=== PATIENT | male | born 1990 | race Caucasian/White ===

== ENCOUNTER 2019-01-09 20:14 | Emergency (ER) | payer MEDICAID ==
[~2019-01-09] VITALS: Ht 175.3 cm; Wt 82.0 kg
[2019-01-09 20:49] VITALS: BP 140/77
[2019-01-09] MEDS ORDERED: KETOROLAC 60MG/2ML VIAL IM ONE (21:30)
== END 2019-01-09 21:40 | disposition home or self-care (01) ==
LOC: ER 20:14
DX: S16.1XXA Strain of muscle, fascia and tendon at neck level, initial encounter (principal); F12.10 Cannabis abuse, uncomplicated; X58.XXXA Exposure to other specified factors, initial encounter; Y93.89 Activity, other specified; Y92.89 Other specified places as the place of occurrence of the external cause; Y99.8 Other external cause status
CPT/HCPCS: 99282; J1885

== ENCOUNTER 2019-01-16 12:14 | Emergency (ER) | payer MEDICAID ==
[~2019-01-16] VITALS: Ht 175.3 cm; Wt 82.0 kg
[2019-01-16 12:25] VITALS: BP 108/63
== END 2019-01-16 13:05 | disposition home or self-care (01) ==
LOC: ER 12:14
DX: M25.511 Pain in right shoulder (principal); F12.10 Cannabis abuse, uncomplicated
CPT/HCPCS: 99283

== ENCOUNTER 2019-08-16 23:43 | Emergency (ER) | payer MEDICAID ==
[~2019-08-16] VITALS: Ht 175.3 cm; Wt 82.0 kg
[2019-08-17] MEDS ORDERED: IBUPROFEN 600MG TABLET PO ONE (00:45)
[2019-08-17 01:56] VITALS: BP 125/79
== END 2019-08-17 01:57 | disposition home or self-care (01) ==
LOC: ER 23:43
DX: M54.5 Low back pain (principal); M25.572 Pain in left ankle and joints of left foot; M79.89 Other specified soft tissue disorders; G89.11 Acute pain due to trauma; W10.9XXA Fall (on) (from) unspecified stairs and steps, initial encounter; R03.0 Elevated blood-pressure reading, without diagnosis of hypertension; F12.90 Cannabis use, unspecified, uncomplicated; Y93.89 Activity, other specified; Y92.89 Other specified places as the place of occurrence of the external cause
CPT/HCPCS: 72100; 73610; 99283; 99284